=== PATIENT | male | born 1960 | race Two or more races ===

== ENCOUNTER 2024-10-01 12:00 | Inpatient (IN) | payer BC ==
[~2024-10-01] VITALS: Ht 172.7 cm; Wt 72.7 kg
--- NOTE | 2024-10-01 12:35 | ED.PDOC ---
HPI Comments 63 y.o male presents to the ED for a chief complaint of substernal chest pain associated with SOB that started today while at work. Patient describes pain as a tightness sensation, is constant, non radiating and has no modifying factors. Patient reports undergoing extensive stress as his has been in the ICU since 08/26/24. Patient took 2 x 325mg of ASA. No nausea, vomiting, diarrhea, fever, or chills reported. Patient has a medical history of HTN. Chief Complaint: Chest Pain Time Seen by MD: 12:11 Reviewed Notes: Nurses Notes, Medications, Allergies Information Source: Patient Mode of Arrival: Ambulatory Severity: Moderate Timing: Hours Duration: Since onset Location: Substernal Radiation: No Radiation Quality: Tightness Onset: At Rest Cardiac Risk Factors: HTN PE Risk Factors: None History of: Aspirin Modifying Factors: Nothing Associated Signs and Symptoms: SOB Past Medical History PAST MEDICAL HISTORY: HTN Surgical History (Other): colon Family History Family History: Reviewed,noncontributory to illness Social History Smoker: Non-Smoker Alcohol: Denies ETOH Use Drugs: Denies Drug Use Lives In: Home Constitutional: denies: chills, diaphoresis, fatigue, fever, malaise, sweats, weakness, others EENTM: denies: blurred vision, double vision, ear bleeding, ear discharge, ear drainage, ear pain, ear ringing, eye pain, eye redness, hearing loss, mouth pain, mouth swelling, nasal discharge, nose bleeding, nose congestion, nose pain, photophobia, tearing, throat pain, throat swelling, voice changes, others Respiratory: reports: SOB at rest, shortness of breath, SOB with excertion; denies: cough, hemoptysis, orthopnea, stridor, wheezing, others Cardiovascular: reports: chest pain; denies: dizzy spells, diaphoresis, Dyspnea on exertion, edema, irregular heart beat, left arm pain, lightheadedness, palpitations, PND, syncope, others Gastrointestinal: denies: abdomen distended, abdominal pain, blood streaked bowels, constipated, diarrhea, dysphagia, difficulty swallowing, hematemesis, melena, nausea, poor appetite, poor fluid intake, rectal bleeding, rectal pain, vomiting, others Genitourinary: denies: burning, dysuria, flank pain, frequency, hematuria, incontinence, penile discharge, penile sore, pain, testicle pain, testicle swelling, urgency, others Neurological: denies: dizziness, fainting, headache, left sided numbness, left sided weakness, numbness, paresthesia, pre-existing deficit, right sided numbness, right sided weakness, seizure, speech problems, tingling, tremors, weakness, others Musculoskeletal: denies: back pain, gout, joint pain, joint swelling, muscle pain, muscle stiffness, neck pain, others Integumetry: denies: bruises, change in color, change in hair/nails, dryness, laceration, lesions, lumps, rash, wounds, others Allergic/Immunocompromised: denies: Difficulty Healing, Frequent Infections, Hives, Itching, others Hematologic/Lymphatic: denies: anemia, blood clots, easy bleeding, easy bruising, swollen glands, others Endocrine: denies: excessive hunger, excessive sweating, excessive thirst, excessive urination, flushing, intolerance to cold, intolerance to heat, unexplained weight gain, unexplained weight loss, others Psychiatric: denies: anxiety, bipolar disorder, depression, hopeless, panic disorder, schizophrenia, sleepless, suicidal, others All Other Systems: Reviewed and Negative Physical Exam General Appearance: Moderate Distress HEENT: Normal ENT Inspection, Pharynx Normal, TMs Normal Neck: Full Range of Motion, Non-Tender, Normal, Normal Inspection Respiratory: Chest Non-Tender, Lungs Clear, No Accessory Muscle Use, No Respiratory Distress, Normal Breath Sounds Cardiovascular: No Edema, No JVD, No Murmur, No Gallop, Normal Peripheral Pulses, Regular Rate/Rhythm Breast Exam: Deferred Gastrointestinal: No Organomegaly, Non Tender, No Pulsatile Mass, Normal Bowel Sounds, Soft Genitalia: Deferred Pelvic: Deferred Rectal: Deferred Extremities: No calf tenderness, Normal capillary refill, Normal inspection, Normal range of motion, Non-tender, No pedal edema Musculoskeletal : Apperance: Normal Neurologic: Alert, drywall sander II-XII nml as Tested, No Motor Deficits, Normal Affect, Normal Mood, No Sensory Deficits Cerebellar Function: Normal Reflexes: Normal Skin: Dry, Normal Color, Warm Peripheral Pulses: 3+ Radial (R), 3+ Radial (L) Lymphatic: No Adenopathy Was a procedure done? Was a procedure done?: No CP Differential Dx Differential Diagnosis: A-fib, A-Flutter, Angina, Anxiety / Panic Attack, Atrial Dysrhythmia, Electrolyte Disorder, N/A Differential Diagnosis: Angina, Myocardial Infarction, Pericarditis X-Ray, Labs, Meds, VS Vital Signs Date Time Temp Pulse Resp B/P (MAP) Pulse Ox O2 Delivery O2 Flow Rate FiO2 10/01/24 14:15 90 15 96 Room Air* 0 21 10/01/24 14:15 97.8 90 15 146/94 (111) 96 97.8 10/01/24 12:09 93 10/01/24 12:02 99.2 86 19 145/95 (112) 97 Lab Test 10/01/24 13:06 10/01/24 12:06 Range/Units Troponin I High Sensitivity 11 11 </=54 ng/L Patient alert. Complaining of chest pain. Blood pressure slightly elevated. Continues to have chest discomfort pain Possibly anxiety related. Vitals stable. Has risk factors for coronary artery disease. Was given aspirin. Explained to the patient that he will need stress test. Cardiology consultation. Continue cardiac monitoring. EKG reviewed does not show any acute process. Time of 1ST Reevaluation: 12:32 Reevaluation 1ST: Unchanged Patient Education/Counseling: Diagnosis, Treatment, Prognosis Family Education/Counseling: No Family Present Departure 1 Departure Time of Disposition: 16:05 Impression: Primary Impression: Chest pain of unknown etiology Additional Impression: Hypertension Qualified Codes: I10 - Essential (primary) hypertension Disposition: ADMITTED INPATIENT Admit to: Med Surg Condition: Guarded Critical Care Note Critical Care Time?: No Stability Stability form required: No Heart Score Heart Score: Heart Score Response (Comments) Value History Slightly Suspicious 0 EKG Normal 0 Age 45-64 1 Risk Factors >3 or Hx ASHD 2 Troponin Normal limit 0 Total 3 I personally scribed for KERMIT LAM MD ([email or web address]) on 10/01/24 at 12:35. Electronically submitted by Maggie Martinez ([facility]). KERMIT LAM MD Oct 01, 2024 12:35
[2024-10-01 14:15] VITALS: PULSE 90; RESP 15; O2SAT 96
[2024-10-01] MEDS ORDERED: MAALOX PLUS or MAALOX 30 ML PO PRN (19:30)
[2024-10-01] MEDS ORDERED: MORPHINE SULFATE 4 MG/ML SYR/VIAL IV PRN (19:30)
[2024-10-01] MEDS ORDERED: MORPHINE SULFATE INJ 2 MG/ml SYRG IV PRN (19:30)
[2024-10-01] MEDS ORDERED: ZOLPIDEM TARTRATE 5 MG TAB PO PRN (19:30)
[2024-10-01] MEDS ORDERED: ACETAMINOPHEN 325 MG TAB PO PRN (19:30)
[2024-10-01] MEDS ORDERED: NITROGLYCERIN 0.4 MG SL TAB SL PRN ×2 (19:30)
[2024-10-01] MEDS ORDERED: ONDANSETRON HCL 4 MG/2 ML VIAL IV PRN (19:30)
[2024-10-01] MEDS ORDERED: LORazepam 0.5 MG TAB PO PRN (19:30)
--- NOTE | 2024-10-01 19:40 | DVHHP2 ---
History of Present Illness Reason for Visit: Chest pain History of Present Illness 64-year-old male with a past medical history of hypertension comes into the ED complaining of chest pain and shortness of breath patient was evaluated in the ED stating that he was having severe centralized chest pain hemodynamically patient was stable however patient is still stating that the pain has been unrelieved ED has recommended the patient be admitted for further evaluation and management. Cardiovascular: HTN Review of Systems Constitutional: No: Fever, Chills, Sweats, Weakness, Malaise, Other Eyes: No: Pain, Vision change, Conjunctivae inflammation, Eyelid inflammation, Other, Redness ENT: No: Ear pain, Ear discharge, Nose pain, Nose discharge, Nose congestion, Mouth pain, Mouth swelling, Throat pain, Throat swelling, Other Respiratory: Shortness of breath; No: Cough, Dry, SOB with excertion, Wheezing, Hemoptysis, Pleuritic Pain, Sputum, Wheezing, Other Cardiovascular: Chest Pain, Palpitations; No: Orthopnea, Paroxysmal Noc. Dyspnea, Edema, Lt Headedness, Other Gastrointestinal: No: Nausea, Vomiting, Abdominal Pain, Diarrhea, Constipation, Melena, Hematochezia, Other Genitourinary: No Dysuria, No Frequency, No Incontinence, No Hematuria, No Retention, No Other Musculoskeletal: No: other, neck pain, shoulder pain, arm pain, back pain, hand pain, leg pain, foot pain Skin: No: Rash, Lesions, Jaundice, Bruising, Other Neurological: No: Weakness, Numbness, Incoordination, Change in speech, Confusion, Seizures, Other Exam Vital Signs Vital Signs Date Time Temp Pulse Resp B/P (MAP) Pulse Ox O2 Delivery O2 Flow Rate FiO2 10/01/24 14:15 90 15 96 Room Air* 0 21 10/01/24 14:15 97.8 146/94 (111) 97.8 General Appearance: Alert, Oriented X3, Cooperative HEENT: Atraumatic, PERRLA, EOMI Respiratory: Clear to auscultation, Normal air movement Cardiovascular: Regular rate, Normal S1, Normal S2 Abdominal: Normal bowel sounds, Soft Extremities: No cyanosis Skin: No rashes Neuro: Normal gait, Normal speech Psych/Mental Status: Mood NL Labs/Xrays Labs Test 10/01/24 13:06 Range/Units Troponin I High Sensitivity 11 </=54 ng/L Assessment/Plan Assessment/Plan Admit to [facility] Chest pain rule out ACS Hypertension Chest pain protocol Chose in the ED negative Trop x3 Plan discussed with: Patient My Orders Orders - JOSH RODRIGUEZ MD Procedure Category Date Status Time Admit ADMIT 10/01/24 Transmitted 19:26 Code Status CODE 10/01/24 Transmitted 19:26 Cardiac DIET 10/02/24 Transmitted Diet-2gna,Lofat,Lochol Breakfast Aspirin Tablet PHA 10/02/24 Logged 10:00 Aspirin Tablet PHA 10/02/24 Logged 10:00 Atorvastatin (Lipitor) PHA 10/01/24 Logged 22:00 Carvedilol Tablet PHA 10/01/24 Logged (Coreg Tablet) 22:00 Morphine Sulfate PHA 10/01/24 Logged Injection 19:30 Acetaminophen Tablet PHA 10/01/24 Logged (Tylenol Tablet) 19:30 Zolpidem Tartrate PHA 10/01/24 Logged (Ambien) 19:30 Lorazepam Tablet PHA 10/01/24 Logged (Ativan Tablet) 19:30 Docusate Sodium PHA 10/02/24 Logged Capsule (Colace 10:00 Complete Blood Count LAB 10/02/24 Verified 04:00 Basic Metabolic Panel LAB 10/02/24 Verified 04:00 Nitroglycerin PHA 10/01/24 Logged Sublingual (Ntrostat 19:30 Ondansetron Hcl PHA 10/01/24 Logged (Zofran) 19:30 Electrocardigram EKG 10/01/24 Logged 19:26 Alum & Mag PHA 10/01/24 Logged Hydrox-Simethicone 19:30 Troponin-I Hs LAB 10/01/24 Logged 19:26 Lisinopril Tablet PHA 10/02/24 Logged (Zestril Tablet) 10:00 Cardiac KIRIT 10/01/24 In Process Rehabilitation - Outpa Nitroglycerin PHA 10/01/24 Logged Sublingual (Ntrostat 19:30 Morphine Sulfate PHA 10/01/24 Logged Injection 19:30 Stat Ekg For Chest KIRIT 10/01/24 In Process Pain 19:26 Notify Md Of Changes KIRIT 10/01/24 In Process From Base 19:26 Correctional Supervising Cook For KIRIT 10/01/24 In Process 24 Hours 19:26 Emergency Dysrhythmia KIRIT 10/01/24 In Process Protocol 19:26 Rhythm Strips Once KIRIT 10/01/24 In Process Every Shift 19:26 Oxygen By Nasal RT 10/01/24 Transmitted Cannula 19:26 Complete Blood Count LAB 10/01/24 Logged 19:33 Comprehensive LAB 10/01/24 Logged Metabolic Panel 19:33 Urinalysis LAB 10/01/24 Logged 19:33 Problem List: (1) Hypertension (2) Chest pain of unknown etiology Date of Service: Oct 01, 2024 Billing Provider: JOSH RODRIGUEZ MD Common Visit Codes: [id number] INP/OBS CARE (HIGH) JOSH RODRIGUEZ MD Oct 01, 2024 19:40
[2024-10-01 20:18] LABS: Hematocrit 46.9 % (41.0-53.0); Mean Corpuscular Hemoglobin 31.8 pg (28.0-32.0); Mean Corpuscular Hgb Conc. 34.2 g/dL (32.0-36.0); Platelet Count (auto) 319 10^3/uL (140-450); Red Blood Cells 5.04 10^6/uL (4.5-5.90); Red Cell Distribution Width 13.3 % (11.8-14.3); White Blood Cell 10.6 10^3/uL (4.4-10.8)
[2024-10-01 20:21] LABS: Alanine Aminotransferase 39 U/L (7-40); Alkaline Phosphatase 85 U/L (46-116); Anion Gap 10 (5-15); BUN/Creatinine Ratio 15.2 (10.0-20.0); Blood Urea Nitrogen 12 mg/dL (9-23); Calcium 10.2 mg/dL (8.7-10.4); Carbon Dioxide 26 mmol/L (20-31); Chloride 101 mmol/L (98-107); Sodium 137 mmol/L (136-145)
[2024-10-01 20:22] LABS: Albumin 4.8 g/dL (3.2-4.8); Aspartate Aminotransferase 25 U/L (13-40); Bilirubin, Total 3.3 mg/dL (0.2-1.0); Glucose 121 mg/dL (74-106); Total Protein 7.8 g/dL (5.7-8.2)
[2024-10-01 20:24] LABS: Band Neutrophils % (manual) 0; Basophils % (manual) 0 (0.0-2.0); Blast Cells 0; Metamyelocytes % 0; Myelocytes % 0; Promyelocytes % 0; Reactive Lymphocytes 0
[2024-10-01 20:36] LABS: Eosinophils % (manual) 1 (0-7); Lymphocytes % (manual) 16 (10.0-50.0); Monocytes % (manual) 15 (0-12); Platelet Estimate Adequate; RBC Morphology Normal
[2024-10-01] MEDS ORDERED: ATORVASTATIN 20 MG TAB PO SCH (22:00)
[2024-10-01] MEDS ORDERED: EZET10TA24 PO (23:07)
[2024-10-01] MEDS ORDERED: LISI-285 PO (23:07)
[2024-10-01] MEDS ORDERED: TRAM50TA2 PO (23:07)
[2024-10-01] MEDS ORDERED: ATOR20TA PO (23:07)
[2024-10-01] MEDS ORDERED: SILD100T PO (23:07)
[2024-10-01] MEDS ORDERED: NAPR-957 PO (23:07)
[2024-10-01] MEDS ORDERED: ASPI1TAB20 PO (23:07)
[2024-10-01] MEDS: traMADol HCL 50 MG TAB PO PRN (23:37)
[2024-10-02] VITALS (7 sets, daily range): BP systolic 99–142; BP diastolic 62–87; PULSE 74–100; RESP 16–20; TEMP 97.1–97.8; O2SAT 91–98
[2024-10-02] MEDS: CARVEDILOL 3.125 MG TAB PO SCH
[2024-10-02] MEDS: HYDROcodone-ACET 5/325MG TAB PO PRN (04:43)
[2024-10-02 06:48] LABS: Anion Gap 10 (5-15); Carbon Dioxide 27 mmol/L (20-31); Chloride 100 mmol/L (98-107); Sodium 137 mmol/L (136-145)
[2024-10-02 06:49] LABS: Potassium 3.4 mmol/L (3.5-5.1)
[2024-10-02 06:50] LABS: Calcium 9.2 mg/dL (8.7-10.4)
[2024-10-02 06:54] LABS: BUN/Creatinine Ratio 14.1 (10.0-20.0); Blood Urea Nitrogen 10 mg/dL (9-23); Glucose 101 mg/dL (74-106)
[2024-10-02 07:13] LABS: Basophils # (auto) 0 10 ^3/uL (0-0.2); Basophils % (auto) 0.2 % (0.0-2.0); Eosinophils # (auto) 0.2 10 ^3/uL (0-0.8); Eosinophils % (auto) 2.2 % (0.0-7.0); Hematocrit 44.5 % (41.0-53.0); Hemoglobin 15.3 g/dL (13.5-17.5); Lymphocytes # (auto) 1.5 10 ^3/uL (0.4-5.4); Lymphocytes % (auto) 20.4 % (10.0-50.0); Mean Corpuscular Hemoglobin 31.7 pg (28.0-32.0); Mean Corpuscular Hgb Conc. 34.5 g/dL (32.0-36.0); Mean Corpuscular Volume 91.9 fL (80.0-100.0); Monocytes % (auto) 13.7 % (0.0-12.0); Neutrophils # (auto) 4.8 10 ^3/uL (1.6-8.6); Neutrophils % (auto) 63.5 % (37.0-80.0); Nucleated Red Blood Cells % 0.1 %; Platelet Count (auto) 279 10^3/uL (140-450); Red Blood Cells 4.84 10^6/uL (4.5-5.90); Red Cell Distribution Width 13.1 % (11.8-14.3); White Blood Cell 7.6 10^3/uL (4.4-10.8)
[2024-10-02] MEDS: DOCUSATE SOD 100 MG CAP PO SCH (10:00)
[2024-10-02] MEDS ORDERED: NAPROXEN PO SCH (10:00)
[2024-10-02] MEDS ORDERED: PATIENTS OWN MEDICATION (Sildenafil Citrate (Viagra) 1 TAB) PO SCH (10:00)
[2024-10-02] MEDS ORDERED: EZETIMIBE SIMVASTATIN PO SCH (10:00)
[2024-10-02] MEDS ORDERED: ASPirin 325 MG TAB PO SCH (10:00)
[2024-10-02] MEDS ORDERED: PATIENTS OWN MEDICATION (Lisinopril & Hydrochlorothiazi (Lisinopril/Hydrochlorothi) 1 TAB) PO SCH (10:00)
[2024-10-02] MEDS ORDERED: ASPirin-EC 81 mg tab PO SCH (10:00)
--- NOTE | 2024-10-02 10:56 | DVHPN2 ---
Subjective Continues to complain of chest pressure Reviewed: Care Plan, H&P, Labs, Medications, Previous Orders, Radiology, Other (Consultation) Changes from previous H/P or p: No Changes Objective Vitals Vital Signs Date Time Temp Pulse Resp B/P (MAP) Pulse Ox O2 Delivery O2 Flow Rate FiO2 10/02/24 09:00 97.4 74 17 141/80 (100) 91 97.4 10/02/24 07:15 Room Air* 0 21 General Appearance: Alert, Oriented X3, Cooperative, mild distress HEENT: Atraumatic Lungs: Other (Decreased air entry bilateral) Cardiovascular: Regular rate, Normal S1, Normal S2 Abdomen: Normal bowel sounds, Soft, No tenderness Neuro: Normal speech, Cranial nerves 3-12 NL Psych/Mental Status: Mental status NL, Mood NL Medications Current Medications Medications Dose Ordered Sig/Avery Route Start Time Stop Time Status Last Admin Dose Admin Aspirin 81 mg DAILY PO 10/02/24 10:00 Carvedilol 6.25 mg Q12HR PO 10/01/24 22:00 10/02/24 00:00 6.25 MG Acetaminophen 650 mg Q6HP PRN PO 10/01/24 19:30 Zolpidem Tartrate 5 mg QHSP PRN PO 10/01/24 19:30 Lorazepam 0.5 mg Q6HP PRN PO 10/01/24 19:30 Docusate Sodium 100 mg DAILY PO 10/02/24 10:00 Ondansetron HCl 4 mg Q4HP PRN IV 10/01/24 19:30 Al Hydrox/Mg Hydrox/Simethicone 30 ml Q6HPRN PRN PO 10/01/24 19:30 Lisinopril 10 mg DAILY PO 10/02/24 10:00 Nitroglycerin 0.4 mg Q5MINP PRN SL 10/01/24 19:30 Morphine Sulfate 2 mg Q30M PRN IV 10/01/24 19:30 Atorvastatin Calcium 20 mg DAILY PO 10/02/24 10:00 Acetaminophen/ Hydrocodone Bitart 1 tab Q4HPRN PRN PO 10/01/24 23:15 10/02/24 04:43 1 TAB Tramadol HCl 50 mg Q8HPRN PRN PO 10/01/24 23:45 Laboratory Results Laboratory Tests 10/02/24 05:44 Chemistry Test 10/01/24 12:06 10/02/24 05:44 Albumin 4.8 g/dL (3.2-4.8) Calcium Level 10.2 mg/dL (8.7-10.4) 9.2 mg/dL (8.7-10.4) Total Protein 7.8 g/dL (5.7-8.2) LFT Test 10/01/24 12:06 Alanine Aminotransferase (ALT) 39 U/L (7-40) Alkaline Phosphatase 85 U/L (46-116) Aspartate Amino Transferase (AST) 25 U/L (13-40) Total Bilirubin 3.3 mg/dL (0.2-1.0) H Labs and/or images reviewed: Labs reviewed by me, Image(s) reviewed by me Assessment/Plan Assessment/Plan A 63-year-old male patient; with past medical history of anxiety and essential hypertension; who presented to emergency department with chest pressure. #Chest pain; atypical; ruled out ACS; evaluated by cardiology; most likely anxiety related in the setting of 's severe illness; continue pain management as indicated; continue aspirin and statin; continue monitoring #Essential hypertension; continue antihypertensive medications and adjust accordingly; continue monitoring #Hypokalemia; continue replacement as indicated; continue monitoring #Hyperinflation of the lungs with atelectasis; needs evaluation as outpatient with PFTs; continue monitoring #Elevated total bilirubin; unknown etiology; rest of LFTs within normal limits; continue monitoring Goals of care discussion for 20 minutes; full code Late Entry. This medical document was created using an electronic medical record system with computerized dictation system. Although this document has been carefully reviewed, there might still be some phonetic and typographical errors. These areas are purely typographical due to imperfections of the software programs, and do not reflect any compromise in the patient's medical care. Plan discussed with: Patient, Other (Nurse) My Orders Orders - AMANUEL ROBB MD Procedure Category Date Status Time Complete Blood Count LAB 10/03/24 Verified 04:00 Comprehensive LAB 10/03/24 Verified Metabolic Panel 04:00 Magnesium LAB 10/03/24 Verified 04:00 Potassium Chl Mg PHA 10/02/24 Verified KCL 11:00 Date of Service: Oct 02, 2024 Billing Provider: AMANUEL ROBB MD Common Visit Codes: [id number] INP/OBS CARE(HIGH) Secondary Visit Codes: [id number] CARE PLAN 30 MINUTES (20 minutes) AMANUEL ROBB MD Oct 02, 2024 10:56
--- NOTE | 2024-10-02 12:38 | ECG ---
[facility] Test Date: 2024-10-01 Test Time: 12:09:22 Pat Name: SUNG CAMPOS Department: ER Room: [facility] Gender: M Placement Manager: ALFRED : 1960 Requested By: KERMIT LAM Order Number: [id number] Reading MD: Measurements Intervals [place] Rate: 93 P: 61 DC: 158 QRS: 30 QRSD: 91 T: 34 QT: 366 QTc: 456 Interpretive Statements Sinus rhythm Please click the below link to view image of tracing.
[2024-10-02] MEDS: LISINOPRIL 5 MG TAB PO SCH (12:52)
[2024-10-02] MEDS: ASPirin 81 mg TAB PO SCH (12:53)
[2024-10-02] MEDS: ATORVASTATIN 20 MG TAB PO SCH (12:54)
--- NOTE | 2024-10-02 13:29 | DVHINCON2 ---
Date Seen: Oct 02, [address] Tejeda Reason for Consultation Chest pain History of Present Illness 64-year-old man history of hypertension presented with a chief complaint of substernal chest pain. It was associated with shortness of breath. It occurred while he was at work. He described the chest pain has a chest tightness. He was constant. He was nonradiating. It occurred both at rest and with exertion. He states he was undergoing extensive stress due to his being hospitalized in the ICU since Halloween night. He denies any nausea or vomiting. No diarrhea constipation. No fever or chills. No recent travel history. Cardiology consultation is called for substernal chest pain. Review of systems: 14 point review of systems is negative unless otherwise noted above. Past medical history: Hypertension Past surgical history: Colon surgery Medications: Reviewed Allergies: No known drug allergies. Family history: No family history of premature CAD. No family history of lung disease. Social history: Nonsmoker. No alcohol or illicit drug use. Lives at home. Family History: Diabetes mellitus Grandpa FH: deafness FH: epilepsy G8 MOTHER Grandpa FH: glaucoma Allergies: Coded Allergies: NO KNOWN ALLERGIES (Unverified , 10/01/24) Home Meds Reported Medications Aspirin (Aspir-81) 81 Mg Tab, 1 TAB PO DAILY, #30 TAB 5 Refills 10/01/24 Sildenafil Citrate (Viagra) 100 Mg Tab, 1 TAB PO DAILYP, #6 TAB 11 Refills 10/01/24 Naproxen (Naproxen) 375 Mg Tab, 1 TAB PO BID, #60 TAB 5 Refills 10/01/24 Tramadol Hcl (Tramadol Hcl) 50 Mg Tab, 50 MG PO, TAB 10/01/24 Ezetimibe-Simvastatin (Vytorin) 1 Tab Tab, 1 TAB PO DAILY, #30 TAB 5 Refills 10/01/24 Atorvastatin Calcium (Lipitor) 20 Mg Tab, 1 TAB PO DAILY, #90 TAB 1 Refill 10/01/24 Lisinopril & Hydrochlorothiazi (Lisinopril/Hydrochlorothi) 1 Tab Tab, 1 TAB PO DAILY, #30 TAB 5 Refills 10/01/24 Current Medications Current Medications Medications (Trade) Dose Ordered Sig/Avery Route PRN Reason Start Time Stop Time Status Last Admin Aspirin 81 mg DAILY PO 10/02/24 10:00 10/02/24 12:53 Aspirin 325 mg DAILY PO 10/02/24 10:00 10/01/24 23:56 DC Atorvastatin Calcium (Lipitor) 40 mg HS PO 10/01/24 22:00 10/01/24 23:56 DC Carvedilol (Coreg Tablet) 6.25 mg Q12HR PO 10/01/24 22:00 10/02/24 12:51 Morphine Sulfate 2 mg Q30MP PRN IV FOR CHEST PAIN 10/01/24 19:30 10/01/24 23:37 DC Acetaminophen (Tylenol Tablet) 650 mg Q6HP PRN PO MILD PAIN (1-3 PAIN SCALE) 10/01/24 19:30 Zolpidem Tartrate (Ambien) 5 mg QHSP PRN PO FOR INSOMNIA 10/01/24 19:30 Lorazepam (Ativan Tablet) 0.5 mg Q6HP PRN PO ANXIETY 10/01/24 19:30 Docusate Sodium (Colace Capsule) 100 mg DAILY PO 10/02/24 10:00 Nitroglycerin (Ntrostat Sublingual) 0.4 mg Q5MINP PRN SL FOR CHEST PAIN 10/01/24 19:30 10/01/24 23:37 DC Ondansetron HCl (Zofran) 4 mg Q4HP PRN IV NAUSEA / VOMITING 10/01/24 19:30 Al Hydrox/Mg Hydrox/Simethicone (Maalox Plus) 30 ml Q6HPRN PRN PO FOR STOMACH DISTRESS 10/01/24 19:30 Lisinopril (Zestril Tablet) 10 mg DAILY PO 10/02/24 10:00 10/02/24 12:52 Nitroglycerin (Ntrostat Sublingual) 0.4 mg Q5MINP PRN SL FOR CHEST PAIN 10/01/24 19:30 Morphine Sulfate 2 mg Q30M PRN IV FOR CHEST PAIN 10/01/24 19:30 Aspirin (Ecotrin Enteric Coated Tablet) 81 mg DAILY PO 10/02/24 10:00 10/01/24 23:34 DC Atorvastatin Calcium (Lipitor) 20 mg DAILY PO 10/02/24 10:00 10/02/24 12:54 Tramadol HCl (Ultram) 50 mg Q8HPRN PRN PO PAIN SCALE 1 THRU 6 10/01/24 23:15 10/01/24 23:50 DC 10/01/24 23:37 Patient Own Medication 1 tab DAILY PO 10/02/24 10:00 10/01/24 23:51 DC Patient Own Medication 1 tab DAILY PO 10/02/24 10:00 10/01/24 23:50 DC Patient Own Medication 1 tab BID PO 10/02/24 10:00 10/01/24 23:51 DC Patient Own Medication 1 tab DAILYP PO 10/02/24 10:00 10/01/24 23:39 DC Acetaminophen/ Hydrocodone Bitart ([place] 5/325MG Tab) 1 tab Q4HPRN PRN PO SEVERE PAIN (7-10 PAIN SCALE) 10/01/24 23:15 10/02/24 04:43 Tramadol HCl (Ultram) 50 mg Q8HPRN PRN PO PAIN SCALE 4 THRU 6 10/01/24 23:45 Vital Signs Vital Signs Date Time Temp Pulse Resp B/P (MAP) Pulse Ox O2 Delivery O2 Flow Rate FiO2 10/02/24 12:52 141/80 10/02/24 12:51 74 10/02/24 09:00 97.4 17 91 97.4 10/02/24 07:15 Room Air* 0 21 Physical Exam Gen.: Patient lying in bed in no apparent distress.He is breathing comfortably on room air. Head: Normocephalic, atraumatic Eyes: EOMI/PERRLA. Ears: Normal hearing. Normal anatomy. Neck/trachea: Trachea midline, supple. Nose: Normal external anatomy. Mouth: Moist mucous membranes. Chest: Fair air entry bilaterally. No wheezing or rhonchi. Cardio vascular: Positive S1, positive S2. Regular rate and rhythm. Abdomen: Positive bowel sounds in all 4 quadrants. Soft, non-tender, non- distended. : Deferred. Rectal: Deferred Skin: Warm, dry. Extremities: 2+ radial pulses bilaterally. No lower extremity edema. Neuro: Awake, alert, oriented x3. No gross motor or sensory deficits. Cranial nerves II through XII intact. Gait not assessed. Labs/Diagnostic Data Labs Test 10/02/24 05:44 10/01/24 21:09 10/01/24 12:06 Range/Units White Blood Count 7.6 # 4.4-10.8 10^3/uL Red Blood Count 4.84 4.5-5.90 10^6/uL Hemoglobin 15.3 13.5-17.5 g/dL Hematocrit 44.5 41.0-53.0 % Mean Corpuscular Volume 91.9 80.0-100.0 fL Mean Corpuscular Hemoglobin 31.7 28.0-32.0 pg Mean Corpuscular Hemoglobin Concent 34.5 32.0-36.0 g/dL Red Cell Distribution Width 13.1 11.8-14.3 % Platelet Count 279 140-450 10^3/uL Mean Platelet Volume 7.5 6.9-10.8 fL Neutrophils (%) (Auto) 63.5 37.0-80.0 % Lymphocytes (%) (Auto) 20.4 10.0-50.0 % Monocytes (%) (Auto) 13.7 H 0.0-12.0 % Eosinophils (%) (Auto) 2.2 0.0-7.0 % Basophils (%) (Auto) 0.2 0.0-2.0 % Neutrophils # (Auto) 4.8 1.6-8.6 10 ^3/uL Lymphocytes # (Auto) 1.5 0.4-5.4 10 ^3/uL Monocytes # (Auto) 1.0 0-1.3 10 ^3/uL Eosinophils # (Auto) 0.2 0-0.8 10 ^3/uL Basophils # (Auto) 0 0-0.2 10 ^3/uL Nucleated Red Blood Cells 0.1 % Sodium Level 137 136-145 mmol/L Potassium Level 3.4 L 3.5-5.1 mmol/L Chloride Level 100 98-107 mmol/L Carbon Dioxide Level 27 20-31 mmol/L Anion Gap 10 5-15 Blood Urea Nitrogen 10 9-23 mg/dL Creatinine 0.71 0.700-1.30 mg/dL Glomerular Filtration Rate Calc 104 >90 mL/min BUN/Creatinine Ratio 14.1 10.0-20.0 Serum Glucose 101 74-106 mg/dL Calcium Level 9.2 8.7-10.4 mg/dL Troponin I High Sensitivity 12 </=54 ng/L Differential Total Cells Counted 100.0 100 Neutrophils % (Manual) 68 37.0-80.0 Band Neutrophils % (Manual) 0 Lymphocytes % (Manual) 16 10.0-50.0 Monocytes % (Manual) 15 H 0-12 Eosinophils % (Manual) 1 0-7 Basophils % (Manual) 0 0.0-2.0 Metamyelocytes % (manual) 0 Myelocytes % (Manual) 0 Promyelocytes % (Manual) 0 Blast Cells % (Manual) 0 Reactive Lymphocytes 0 Platelet Estimate Adequate Red Blood Cell Morphology Normal Total Bilirubin 3.3 H 0.2-1.0 mg/dL Aspartate Amino Transferase (AST) 25 13-40 U/L Alanine Aminotransferase (ALT) 39 7-40 U/L Alkaline Phosphatase 85 46-116 U/L Total Protein 7.8 5.7-8.2 g/dL Albumin 4.8 3.2-4.8 g/dL Assessment Impression: Chest pain, ruled out ACS Hypertension Hypokalemia Hyperinflation of the lungs Atelectasis Plan: Labs reviewed. ECG reviewed. Sinus rhythm. There was no elevation in troponins. On room air Obtain CXR Monitor electrolytes. Supplement as necessary. Modify risk factors. Outpatient stress test recommended vs Echocardiogram. CXR notable for hyperinflation of the lungs. Bibasilar atelectasis. IS for atelectasis Recommend outpatient PFTs to evaluate lung hyperinflation. Signing off. No further testing required. Prognosis: Guarded given multiple co-morbidities. Rest of plan per hospitalist and other consultants. Thank you Dr. Tejeda/Noreen for allowing me to participate in this patient's care. Please do not hesitate to contact me if you have any questions or concerns. This medical document was created using an electronic medical record system with [employer] dictation system. Although this document has been carefully reviewed, there may still be some phonetic and typographical errors. These areas are purely typographical due to imperfections of the software programs, and do not reflect any compromise in the patient's medical care. Plan discussed with: Patient, Other (DARIUS Haas MD) Date of Service: Oct 02, 2024 Billing Provider: CAROLYN PERERA MD Cardiology Common Codes: [id number] INP/OBS CARE (High) JONG VELASQUEZ RESIDENT Oct 02, 2024 13:29
--- NOTE | 2024-10-02 14:51 | DVH ---
CHEST RADIOGRAPH Indication: chest pain Technique: Single frontal view of the chest was obtained Comparison: None FINDINGS: Lines and Tubes: None Lungs: No focal consolidation. Bibasilar linear densities. Hyperinflation of the lungs. Pleura: No effusion. No pneumothorax. Cardiomediastinal contours: Unremarkable Bones: No acute osseous abnormality. IMPRESSION: Hyperinflation of the lungs with bibasilar linear atelectasis.
[2024-10-02] MEDS: POTASSIUM CHLORIDE 20 MEQ, LIDOCAINE 1% (LOCAL ANESTH.) 2 ML in SODIUM CHL 0.9% 100 ML IV ONE (17:43)
[2024-10-02] MEDS: traMADol HCL 50 MG TAB PO PRN (17:54)
[2024-10-03 01:00] VITALS: BP 117/70; PULSE 83; RESP 18; TEMP 97.9; O2SAT 94
[2024-10-03 05:00] VITALS: BP 114/68; PULSE 76; RESP 19; TEMP 98.4; O2SAT 95
[2024-10-03 06:27] LABS: Basophils # (auto) 0 10 ^3/uL (0-0.2); Basophils % (auto) 0.3 % (0.0-2.0); Eosinophils # (auto) 0.2 10 ^3/uL (0-0.8); Eosinophils % (auto) 3.5 % (0.0-7.0); Hematocrit 43.5 % (41.0-53.0); Hemoglobin 15.1 g/dL (13.5-17.5); Lymphocytes # (auto) 1.7 10 ^3/uL (0.4-5.4); Lymphocytes % (auto) 24.1 % (10.0-50.0); Mean Corpuscular Hemoglobin 32.2 pg (28.0-32.0); Mean Corpuscular Hgb Conc. 34.8 g/dL (32.0-36.0); Mean Corpuscular Volume 92.7 fL (80.0-100.0); Monocytes # (auto) 0.7 10 ^3/uL (0-1.3); Monocytes % (auto) 10.4 % (0.0-12.0); Neutrophils # (auto) 4.3 10 ^3/uL (1.6-8.6); Neutrophils % (auto) 61.7 % (37.0-80.0); Nucleated Red Blood Cells % 0.1 %; Platelet Count (auto) 276 10^3/uL (140-450); Red Cell Distribution Width 12.9 % (11.8-14.3); White Blood Cell 6.9 10^3/uL (4.4-10.8)
[2024-10-03 06:34] LABS: Alanine Aminotransferase 30 U/L (7-40); Albumin 4.1 g/dL (3.2-4.8); Alkaline Phosphatase 69 U/L (46-116); Anion Gap 9 (5-15); Aspartate Aminotransferase 25 U/L (13-40); BUN/Creatinine Ratio 16.7 (10.0-20.0); Blood Urea Nitrogen 11 mg/dL (9-23); Calcium 9.5 mg/dL (8.7-10.4); Carbon Dioxide 28 mmol/L (20-31); Chloride 102 mmol/L (98-107); Glucose 100 mg/dL (74-106); Magnesium 2.2 mg/dL (1.6-2.6); Sodium 139 mmol/L (136-145); Total Protein 6.7 g/dL (5.7-8.2)
[2024-10-03 06:44] LABS: Bilirubin, Total 2.6 mg/dL (0.2-1.0); Potassium 3.3 mmol/L (3.5-5.1)
--- NOTE | 2024-10-03 07:11 | DVHPN2 ---
Subjective No more chest pressure Reviewed: Care Plan, H&P, Labs, Medications, Previous Orders, Radiology, Other (Consultation) Changes from previous H/P or p: Changes Objective Vitals Vital Signs Date Time Temp Pulse Resp B/P (MAP) Pulse Ox O2 Delivery O2 Flow Rate FiO2 10/03/24 05:00 98.4 76 19 114/68 (83) 95 98.4 10/02/24 20:00 Room Air* 0 21 Intake/Output Intake and Output 10/03/24 07:00 Intake Total 1512 ml Balance 1512 ml Intake Oral 1400 ml IV Total 112 ml # Voids 8 # Bowel Movements 3 General Appearance: Alert, Oriented X3, Cooperative, mild distress HEENT: Atraumatic Lungs: Other (Decreased air entry bilateral) Cardiovascular: Regular rate, Normal S1, Normal S2 Abdomen: Normal bowel sounds, Soft, No tenderness Neuro: Normal speech, Cranial nerves 3-12 NL Psych/Mental Status: Mental status NL, Mood NL Medications Current Medications Medications Dose Ordered Sig/Avery Route Start Time Stop Time Status Last Admin Dose Admin Aspirin 81 mg DAILY PO 10/02/24 10:00 10/02/24 12:53 81 MG Carvedilol 6.25 mg Q12HR PO 10/01/24 22:00 10/02/24 12:51 6.25 MG Acetaminophen 650 mg Q6HP PRN PO 10/01/24 19:30 Zolpidem Tartrate 5 mg QHSP PRN PO 10/01/24 19:30 Lorazepam 0.5 mg Q6HP PRN PO 10/01/24 19:30 Docusate Sodium 100 mg DAILY PO 10/02/24 10:00 Ondansetron HCl 4 mg Q4HP PRN IV 10/01/24 19:30 Al Hydrox/Mg Hydrox/Simethicone 30 ml Q6HPRN PRN PO 10/01/24 19:30 Lisinopril 10 mg DAILY PO 10/02/24 10:00 10/02/24 12:52 10 MG Nitroglycerin 0.4 mg Q5MINP PRN SL 10/01/24 19:30 Morphine Sulfate 2 mg Q30M PRN IV 10/01/24 19:30 Atorvastatin Calcium 20 mg DAILY PO 10/02/24 10:00 10/02/24 12:54 20 MG Acetaminophen/ Hydrocodone Bitart 1 tab Q4HPRN PRN PO 10/01/24 23:15 10/02/24 22:04 1 TAB Tramadol HCl 50 mg Q8HPRN PRN PO 10/01/24 23:45 10/03/24 06:08 50 MG Laboratory Results Laboratory Tests 10/03/24 05:14 Chemistry Test 10/03/24 05:14 Albumin 4.1 g/dL (3.2-4.8) Calcium Level 9.5 mg/dL (8.7-10.4) Magnesium Level 2.2 mg/dL (1.6-2.6) Total Protein 6.7 g/dL (5.7-8.2) LFT Test 10/03/24 05:14 Alanine Aminotransferase (ALT) 30 U/L (7-40) Alkaline Phosphatase 69 U/L (46-116) Aspartate Amino Transferase (AST) 25 U/L (13-40) Total Bilirubin 2.6 mg/dL (0.2-1.0) H Labs and/or images reviewed: Labs reviewed by me, Image(s) reviewed by me Assessment/Plan Assessment/Plan A 63-year-old male patient; with past medical history of anxiety and essential hypertension; who presented to emergency department with chest pressure. #Chest pain; atypical; ruled out ACS; cleared by cardiology; most likely anxiety related in the setting of 's severe illness; reviewed echocardiogram; continue home aspirin and statin; discharged home; to follow up with discharge clinic within one week #Essential hypertension; to resume home antihypertensive medications; to follow up with discharge clinic within one week #Hypokalemia; collected with replacement; to follow up with discharge clinic within one week #Hyperinflation of the lungs with atelectasis; needs evaluation as outpatient with PFTs; to follow up with pulmonology as outpatient for PFTs #Elevated total bilirubin; unknown etiology; rest of LFTs within normal limits; decreasing; to follow up with discharge clinic within one week Advised the patient to follow up with his primary care provider within a week; otherwise the patient has to follow up with discharge clinic within a week. The patient will be discharged home. Late Entry. This medical document was created using an electronic medical record system with computerized dictation system. Although this document has been carefully reviewed, there might still be some phonetic and typographical errors. These areas are purely typographical due to imperfections of the software programs, and do not reflect any compromise in the patient's medical care. Plan discussed with: Patient, Other (Nurse) My Orders Orders - AMANUEL ROBB MD Procedure Category Date Status Time * Cardiology Consult CONS 10/02/24 Transmitted 10:57 Potassium Effervesent PHA 10/03/24 Logged Tab (Klor-Con/Ef) 07:15 Date of Service: Oct 03, 2024 Billing Provider: AMANUEL ROBB MD Common Visit Codes: [id number] INP/OBS CARE(HIGH) AMANUEL ROBB MD Oct 03, 2024 07:11
[2024-10-03 09:00] VITALS: BP 105/70; PULSE 83; RESP 17; TEMP 97.9; O2SAT 94
[2024-10-03] MEDS: POTASSIUM EFFERVESENT TAB 25 MEQ PO ONE (11:25)
--- NOTE | 2024-10-03 12:11 | DVHINCON2 ---
Date Seen: Oct 03, 2024 Referring Physician Noreen JACOBSEN Reason for Consultation Chest pain History of Present Illness 64-year-old male with PMH for HTN, colon cancer s/p partial colectomy in remission, HLD presented to the hospital with chest pain. Chest pain noted to be retrosternal, constant, nonradiating, pressure in nature, associated with shortness of breath. Patient states it happened once and felt to have to do with a lot of stress in his life, currently is in ICU and not doing well per patient. Denies any diaphoresis, palpitations, N/V, lightheadedness. Upon evaluation in the ER patient noted to have troponins trending negative x3. EKG reviewed and shows sinus rhythm at 93 beats per minute, no acute ST abnormalities noted. Past Medical History HTN HLD Colon CA Past Surgical History Partial colectomy Family History: Diabetes mellitus Grandpa FH: deafness FH: epilepsy G8 MOTHER Grandpa FH: glaucoma Family History Denies pertinent family cardiac history Social History Denies alcohol, tobacco, or illicit drug use Allergies: Coded Allergies: NO KNOWN ALLERGIES (Unverified , 10/01/24) Home Meds Reported Medications Aspirin (Aspir-81) 81 Mg Tab, 1 TAB PO DAILY, #30 TAB 5 Refills 10/01/24 Sildenafil Citrate (Viagra) 100 Mg Tab, 1 TAB PO DAILYP, #6 TAB 11 Refills 10/01/24 Naproxen (Naproxen) 375 Mg Tab, 1 TAB PO BID, #60 TAB 5 Refills 10/01/24 Tramadol Hcl (Tramadol Hcl) 50 Mg Tab, 50 MG PO, TAB 10/01/24 Ezetimibe-Simvastatin (Vytorin) 1 Tab Tab, 1 TAB PO DAILY, #30 TAB 5 Refills 10/01/24 Atorvastatin Calcium (Lipitor) 20 Mg Tab, 1 TAB PO DAILY, #90 TAB 1 Refill 10/01/24 Lisinopril & Hydrochlorothiazi (Lisinopril/Hydrochlorothi) 1 Tab Tab, 1 TAB PO DAILY, #30 TAB 5 Refills 10/01/24 Review of Systems Constitutional: No: Fever, Chills, Sweats, Weakness, Malaise, Other Eyes: No: Pain, Vision change, Conjunctivae inflammation, Eyelid inflammation, Other, Redness ENT: No: Ear pain, Ear discharge, Nose pain, Nose discharge, Nose congestion, Mouth pain, Mouth swelling, Throat pain, Throat swelling, Other Respiratory: No: Cough, Dry, Shortness of breath, SOB with exertion, Wheezing, Hemoptysis, Pleuritic Pain, Sputum, Wheezing, Other Cardiovascular: ; No: Chest Pain Palpitations, Orthopnea, Paroxysmal Noc. Dyspnea, Edema, Lt Headedness, Other Gastrointestinal: No: Nausea, Vomiting, Abdominal Pain, Diarrhea, Constipation, Melena, Hematochezia, Other Genitourinary: No Dysuria, No Frequency, No Incontinence, No Hematuria, No Retention, No Other Musculoskeletal: neck pain; No: other, shoulder pain, arm pain, back pain, hand pain, leg pain, foot pain Skin: No: Rash, Lesions, Jaundice, Bruising, Other Neurological: Other (Dizziness, headache.); No: Weakness, Numbness, Incoordination, Change in speech, Confusion, Seizures Vital Signs Vital Signs Date Time Temp Pulse Resp B/P (MAP) Pulse Ox O2 Delivery O2 Flow Rate FiO2 10/03/24 11:24 83 105/70 10/03/24 09:00 97.9 17 94 97.9 10/02/24 20:00 Room Air* 0 21 Physical Exam General appearance: Patient is well-developed, well-nourished, in no acute distress. HEENT: Exam shows: Normocephalic, atraumatic, PERRLA, EOMI Neck: Supple, no bruits Chest: Equal chest excursion bilaterally. Breath sounds normal-no rales or wheezes. Heart: Rhythm: Regular rate; no murmur or gallop Abdomen: Exam shows: Soft, nontender, nondistended Musculoskeletal: No clubbing, no cyanosis, no lower extremity edema Dermatology: Skin warm, moist. Neurological: Exam shows: Alert and oriented x4, normal speech Available prior records, labs, EKG, rhythm strips reviewed and interpreted Labs/Diagnostic Data Labs Test 10/03/24 05:14 10/01/24 21:09 10/01/24 12:06 Range/Units White Blood Count 6.9 4.4-10.8 10^3/uL Red Blood Count 4.70 4.5-5.90 10^6/uL Hemoglobin 15.1 13.5-17.5 g/dL Hematocrit 43.5 41.0-53.0 % Mean Corpuscular Volume 92.7 80.0-100.0 fL Mean Corpuscular Hemoglobin 32.2 H 28.0-32.0 pg Mean Corpuscular Hemoglobin Concent 34.8 32.0-36.0 g/dL Red Cell Distribution Width 12.9 11.8-14.3 % Platelet Count 276 140-450 10^3/uL Mean Platelet Volume 7.6 6.9-10.8 fL Neutrophils (%) (Auto) 61.7 37.0-80.0 % Lymphocytes (%) (Auto) 24.1 10.0-50.0 % Monocytes (%) (Auto) 10.4 0.0-12.0 % Eosinophils (%) (Auto) 3.5 0.0-7.0 % Basophils (%) (Auto) 0.3 0.0-2.0 % Neutrophils # (Auto) 4.3 1.6-8.6 10 ^3/uL Lymphocytes # (Auto) 1.7 0.4-5.4 10 ^3/uL Monocytes # (Auto) 0.7 0-1.3 10 ^3/uL Eosinophils # (Auto) 0.2 0-0.8 10 ^3/uL Basophils # (Auto) 0 0-0.2 10 ^3/uL Nucleated Red Blood Cells 0.1 % Sodium Level 139 136-145 mmol/L Potassium Level 3.3 L 3.5-5.1 mmol/L Chloride Level 102 98-107 mmol/L Carbon Dioxide Level 28 20-31 mmol/L Anion Gap 9 5-15 Blood Urea Nitrogen 11 9-23 mg/dL Creatinine 0.66 L 0.700-1.30 mg/dL Glomerular Filtration Rate Calc 106 >90 mL/min BUN/Creatinine Ratio 16.7 10.0-20.0 Serum Glucose 100 74-106 mg/dL Calcium Level 9.5 8.7-10.4 mg/dL Magnesium Level 2.2 1.6-2.6 mg/dL Total Bilirubin 2.6 H 0.2-1.0 mg/dL Aspartate Amino Transferase (AST) 25 13-40 U/L Alanine Aminotransferase (ALT) 30 7-40 U/L Alkaline Phosphatase 69 46-116 U/L Total Protein 6.7 5.7-8.2 g/dL Albumin 4.1 3.2-4.8 g/dL Troponin I High Sensitivity 12 </=54 ng/L Differential Total Cells Counted 100.0 100 Neutrophils % (Manual) 68 37.0-80.0 Band Neutrophils % (Manual) 0 Lymphocytes % (Manual) 16 10.0-50.0 Monocytes % (Manual) 15 H 0-12 Eosinophils % (Manual) 1 0-7 Basophils % (Manual) 0 0.0-2.0 Metamyelocytes % (manual) 0 Myelocytes % (Manual) 0 Promyelocytes % (Manual) 0 Blast Cells % (Manual) 0 Reactive Lymphocytes 0 Platelet Estimate Adequate Red Blood Cell Morphology Normal Assessment * Chest pain - troponin negative. EKG negative for acute ischemic changes. Continue on aspirin and statin. ACS ruled out. Follow-up echo. * HTN - stable on home dose lisinopril. Continue trending. * HLD - statin * Shortness of breath - CXR showing hyperinflated lungs with bibasilar linear atelectasis. Follow-up echo. Pulmonology on board. Case Discussed with Dr Longoria. No other episodes of chest pain per patient. Wants to be discharged. Troponins negative. Patient to follow up outpatient for ischemic workup. Patient is stable from Cardiology standpoint pending normal echo. Critical care, time spent: 40 minutes This medical document was created using an electronic medical record system with voice recognition software and computerized dictation system. Although this document has been carefully reviewed, there might still be some phonetic and typographical errors. Occasional wrong-word or ``sound-alike substitutions may have occurred due to the inherent limitations of voice recognition software. These areas are purely typographical due to imperfections of the software programs and do not reflect any compromise in the patient's medical care. Please read the chart carefully and recognize, using context, where these substitutions have occurred. Plan discussed with: Patient Date of Service: Oct 03, 2024 Billing Provider: CAROLYN LONGORIA MD Cardiology Common Codes: [id number] INP/OBS CARE (High), [id number] CARE 30-74 MIN IDA BAUMANN AGACNP Oct 03, 2024 12:11
[2024-10-03 12:42] VITALS: BP 120/80; RESP 20; TEMP 97.5; O2SAT 97
--- NOTE | 2024-10-03 13:14 | DVHSR ---
APPROVED REPORT EXAM: Two-dimensional and M-mode echocardiogram with Doppler and color Doppler. Blood Pressure: 114/68 mmHg INDICATION Chest Pain RISK FACTORS Height: 5' 8", Weight: 160 DIMENSIONS LVDd4.4 (3.8-5.7cm)LA (2D)3.0 (1.9-4.0cm)Aortic Root3.1 (2.0-3.7cm) LVDs2.9 (2.5-4.0cm)LA (MM) (1.9-4.0cm)Aortic Cusp Exc1.9 (1.5-2.0cm) EF (%) 65.0 (55-70%)Rt. Atrium2.7 (1.9-4.0cm)Asc. Aorta cm IVSd1.0 (0.7-1.1cm)RV (D) (1.8-2.4cm) PWd1.1 (0.7-1.1cm) Mitral Valve MitralMitral Stenosis E wave0.60m/sMV Mean GR.mmHg A wave0.90m/sMV Peak GR.mmHg E/A ratio0.72D MVAcm2 Aortic Valve Aortic ValveAortic Stenosis V10.70m/Perry Mean GR.2mmHg V21.00m/Perry Peak GR.4mmHg LVOT Diameter2.2 (1.8-2.4cm)Doppler AVA2.66cm2 Pulmonic Valve V20.60m/s Conclusion Normal left ventricular size and dimension. Normal left ventricular systolic function estimated ejec tion fraction of 60%. There is a grade 1 diastolic dysfunction. Normal right ventricular size and dimension. Normal right ventricular systolic function. Normal biatrial size and dimension. Normal aortic valve structure and function. Normal mitral valve structure and function. Normal tricuspid valve structure and function. There is trivial tricuspid valve regurgitation. The pulmonary valve is grossly normal. No pericardial effusion.
--- NOTE | 2024-10-03 14:19 | DVHDS2 ---
Discharge Summary Date of Admission Oct 01, 2024 at 19:26 Date of Discharge: Oct 03, 2024 Admitting Diagnosis Chest pressure Labs/Diagnostic Data: Laboratory Results Test 10/03/24 05:14 10/01/24 21:09 10/01/24 12:06 White Blood Count 6.9 10^3/uL (4.4-10.8) Red Blood Count 4.70 10^6/uL (4.5-5.90) Hemoglobin 15.1 g/dL (13.5-17.5) Hematocrit 43.5 % (41.0-53.0) Mean Corpuscular Volume 92.7 fL (80.0-100.0) Mean Corpuscular Hemoglobin 32.2 pg (28.0-32.0) Mean Corpuscular Hemoglobin Concent 34.8 g/dL (32.0-36.0) Red Cell Distribution Width 12.9 % (11.8-14.3) Platelet Count 276 10^3/uL (140-450) Mean Platelet Volume 7.6 fL (6.9-10.8) Neutrophils (%) (Auto) 61.7 % (37.0-80.0) Lymphocytes (%) (Auto) 24.1 % (10.0-50.0) Monocytes (%) (Auto) 10.4 % (0.0-12.0) Eosinophils (%) (Auto) 3.5 % (0.0-7.0) Basophils (%) (Auto) 0.3 % (0.0-2.0) Neutrophils # (Auto) 4.3 10 ^3/uL (1.6-8.6) Lymphocytes # (Auto) 1.7 10 ^3/uL (0.4-5.4) Monocytes # (Auto) 0.7 10 ^3/uL (0-1.3) Eosinophils # (Auto) 0.2 10 ^3/uL (0-0.8) Basophils # (Auto) 0 10 ^3/uL (0-0.2) Nucleated Red Blood Cells 0.1 % Sodium Level 139 mmol/L (136-145) Potassium Level 3.3 mmol/L (3.5-5.1) Chloride Level 102 mmol/L (98-107) Carbon Dioxide Level 28 mmol/L (20-31) Anion Gap 9 (5-15) Blood Urea Nitrogen 11 mg/dL (9-23) Creatinine 0.66 mg/dL (0.700-1.30) Glomerular Filtration Rate Calc 106 mL/min (>90) BUN/Creatinine Ratio 16.7 (10.0-20.0) Serum Glucose 100 mg/dL (74-106) Calcium Level 9.5 mg/dL (8.7-10.4) Magnesium Level 2.2 mg/dL (1.6-2.6) Total Bilirubin 2.6 mg/dL (0.2-1.0) Aspartate Amino Transferase (AST) 25 U/L (13-40) Alanine Aminotransferase (ALT) 30 U/L (7-40) Alkaline Phosphatase 69 U/L (46-116) Total Protein 6.7 g/dL (5.7-8.2) Albumin 4.1 g/dL (3.2-4.8) Troponin I High Sensitivity 12 ng/L (</=54) Differential Total Cells Counted 100.0 (100) Neutrophils % (Manual) 68 (37.0-80.0) Band Neutrophils % (Manual) 0 Lymphocytes % (Manual) 16 (10.0-50.0) Monocytes % (Manual) 15 (0-12) Eosinophils % (Manual) 1 (0-7) Basophils % (Manual) 0 (0.0-2.0) Metamyelocytes % (manual) 0 Myelocytes % (Manual) 0 Promyelocytes % (Manual) 0 Blast Cells % (Manual) 0 Reactive Lymphocytes 0 Platelet Estimate Adequate Red Blood Cell Morphology Normal Other Laboratory Tests 10/03/24 05:14 Brief Hx & Hospital Course: A 63-year-old male patient; with past medical history of anxiety and essential hypertension; who presented to emergency department with chest pressure. Details as below: #Chest pressure; atypical; ruled out ACS; cleared by cardiology; most likely anxiety related in the setting of 's severe illness; reviewed echocardiogram; continue home aspirin and statin; discharged home; to follow up with discharge clinic within one week #Essential hypertension; to resume home antihypertensive medications; to follow up with discharge clinic within one week #Hypokalemia; collected with replacement; to follow up with discharge clinic within one week #Hyperinflation of the lungs with atelectasis; needs evaluation as outpatient with PFTs; to follow up with pulmonology as outpatient for PFTs #Elevated total bilirubin; unknown etiology; rest of LFTs within normal limits; decreasing; to follow up with discharge clinic within one week #Grade 1 diastolic dysfunction; no active issues; to follow up with discharge clinic within one week Advised the patient to follow up with his primary care provider within a week; otherwise the patient has to follow up with discharge clinic within a week. The patient will be discharged home. Late Entry. This medical document was created using an electronic medical record system with computerized dictation system. Although this document has been carefully reviewed, there might still be some phonetic and typographical errors. These areas are purely typographical due to imperfections of the software programs, and do not reflect any compromise in the patient's medical care. Condition at Discharge: Stable Final Diagnosis/Problems List Chest pressure; most likely anxiety-related Secondary Diagnosis: as above Discharge Disposition: Home Discharge Instruct/Medications Diet: Cardiac 2g Na,low cholest Activity: No Restrictions, As Tolerated Follow Up/Referral: Discharge clinic within one week; primary care provider within one to two weeks; cardiology within 2 to 4 weeks; pulmonology within 2 to 4 weeks for PFTs Medications: Continue medications including aspirin and statin Discharge Statement: "Patient was advised to return to the ER or call 911 if any headaches, dizziness, shortness of breath, chest pain, abdominal pain, bleeding, fevers, or worsening of medical condition. Patient was counseled about treatment plan, medications, possible side effects, patientverbalized understanding. All questions were answered to the best of my ability. This discharge took greater then 30 minutes in planning, reviewing documentation, counseling the patient, and discussing with other team members." Date of Service: Oct 03, 2024 Billing Provider: AMANUEL ROBB MD Common Visit Codes: [id number]/OBS DISCH DAY >30min AMANUEL ROBB MD Oct 03, 2024 14:19
[2024-10-03 15:58] LABS: Chloride 99 mmol/L (98-107); Potassium 4.6 mmol/L (3.5-5.1)
[2024-10-03 15:59] LABS: Anion Gap 5 (5-15); Carbon Dioxide 31 mmol/L (20-31)
[2024-10-03 16:00] LABS: Calcium 9.8 mg/dL (8.7-10.4)
[2024-10-03 16:04] LABS: BUN/Creatinine Ratio 16.7 (10.0-20.0); Blood Urea Nitrogen 13 mg/dL (9-23); Glucose 93 mg/dL (74-106)
[2024-10-03 16:10] VITALS: BP 123/77; PULSE 77; RESP 19; TEMP 98; O2SAT 93
[2024-10-03 16:12] LABS: Sodium 135 mmol/L (136-145)
[2024-10-03 16:17] VITALS: BP 120/80; PULSE 74; TEMP 36.4
[2024-10-05 09:18] LABS: Hepatitis B Surface Antigen Negative (Negative)
[2024-10-05 09:40] LABS: Hepatitis C Antibody Negative (Negative)
== END 2024-10-03 17:02 | disposition home or self-care (01) | DRG 313 ==
LOC: ER 12:00 → OVERFLOW 19:26 → WEST WING 10-02 06:18
PROVIDERS: ADMIT Hospitalist; ATTEND Internal Medicine
DX: R07.89 Other chest pain (principal); J98.11 Atelectasis; I10 Essential (primary) hypertension; F41.9 Anxiety disorder, unspecified; E87.6 Hypokalemia; E78.5 Hyperlipidemia, unspecified; J98.4 Other disorders of lung; Z90.49 Acquired absence of other specified parts of digestive tract; Z83.3 Family history of diabetes mellitus; Z82.0 Family history of epilepsy and other diseases of the nervous system; Z83.511 Family history of glaucoma; Z85.038 Personal history of other malignant neoplasm of large intestine
CPT/HCPCS: 36415; 71045; 80048; 80053; 83735; 84484; 85007; 85025; 85027; 86803; 87340; 93005; 93306; G0378; J2003